=== PATIENT | female | born 1950 | race Caucasian/White ===

== ENCOUNTER 2022-06-24 03:52 | Inpatient (IN) ==
[2022-06-24] MEDS ORDERED: Piperacillin/Tazobactam 3.375 GM in 0.9 % Sodium Chloride Mini Bag 100 ML IVPB ONE (11:08)
[2022-06-24] MEDS ORDERED: *HR* Dextrose 50 % in Water (Syg) 50 ML SYRINGE IVP PRN (12:05)
[2022-06-24] MEDS ORDERED: Naloxone 0.4 MG/ML INJ IVP PRN (12:05)
[2022-06-24] MEDS ORDERED: Ondansetron 4 MG/2 ML VIAL IVP PRN (12:05)
[2022-06-24] MEDS ORDERED: Dextrose Gel 15 GM/37.5 ML TUBE PO PRN ×2 (12:05)
[2022-06-24] MEDS ORDERED: D5% in Water 1,000 ML IVC PRN (12:05)
[2022-06-24] MEDS ORDERED: *HR* HYDROmorphone PF 0.5 MG/0.5 ML SYRINGE IVP PRN (13:23)
[2022-06-24] MEDS ORDERED: *HR* FentaNYL (PF) 100 MCG/2 ML VIAL IVP PRN (13:23)
[2022-06-24] MEDS ORDERED: Lidocaine -MPF 2% 5 ML VIAL ONE (13:37)
[2022-06-24] MEDS ORDERED: *HR* Etomidate 40 MG/20 ML VIAL IVP ONE (13:37)
[2022-06-24] MEDS ORDERED: Ondansetron 4 MG/2 ML VIAL ONE (13:37)
[2022-06-24] MEDS ORDERED: *HR* FentaNYL (PF) 100 MCG/2 ML VIAL ONE (13:37)
[2022-06-24] MEDS ORDERED: *HR* Rocuronium Bromide 50 MG/5 ML VIAL ONE (13:37)
[2022-06-24] MEDS ORDERED: Lidocaine HCL 4 ML Topical Solution (Laryng-O-Jet Kit Sterile Pak) TP ONE (13:37)
[2022-06-24] MEDS ORDERED: Heparin 1,000 UNITS/500 mL 500 ML ONE (13:39)
[2022-06-24] MEDS ORDERED: Albumin Human 5% 12.5 GM/250 ML IV.SOLN ONE (13:51)
[2022-06-24] MEDS ORDERED: *HR* Vasopressin 20 UNIT/ML VIAL ONE (13:52)
[2022-06-24] MEDS ORDERED: Sugammadex Sodium 200 MG/2 ML VIAL IV ONE (15:06)
[2022-06-24] MEDS: Insulin LISPRO 300 UNITS/3 ML VIAL SUBQ SCH ×2 (17:35→23:59)
[2022-06-24] MEDS: Ringers Solution, Lactated 1,000 ML IVC SCH ×2 (18:49→20:00)
[2022-06-24 20:02] LABS: Estimated Average Glucose 169 mg/dl; Hemoglobin A1C 7.5 %
[2022-06-25] MEDS ORDERED: *HR* Dextrose 50 % in Water (Syg) 50 ML SYRINGE IVP PRN (03:41)
[2022-06-25] MEDS ORDERED: Ringers Solution, Lactated 1,000 ML IVC SCH (03:41)
[2022-06-25] MEDS ORDERED: Dextrose Gel 15 GM/37.5 ML TUBE PO PRN ×2 (03:41)
[2022-06-25] MEDS ORDERED: D5% in Water 1,000 ML IVC PRN (03:41)
[2022-06-25] MEDS ORDERED: *HR* HYDROmorphone PF 0.5 MG/0.5 ML SYRINGE IVP PRN (03:41)
[2022-06-25] MEDS ORDERED: Naloxone 0.4 MG/ML INJ IVP PRN (03:41)
[2022-06-25] MEDS ORDERED: *HR* FentaNYL (PF) 100 MCG/2 ML VIAL IVP PRN (03:41)
[2022-06-25] MEDS ORDERED: Ondansetron 4 MG/2 ML VIAL IVP PRN (03:41)
[2022-06-25 04:07] LABS: Basophils % 0.2 %; Hematocrit 32.1 % (35.3-44.9); Hemoglobin 9.9 g/dL (11.5-15.4); Immature Granulocytes % 0.5 % (0-4); Lymphocytes # 0.5 K/mcL (0.6-4.6); Lymphocytes % 2.9 %; Mean Corpuscular HGB Conc 30.8 g/dL (31.6-35.5); Mean Corpuscular Hemoglobin 30.4 pg (28.0-33.3); Mean Corpuscular Volume 98.5 fL (83.0-100.0); Mean Platelet Volume 11.2 fL (9.4-12.4); Monocytes # 0.7 K/mcL (0.0-1.3); Neutrophils # 16.1 K/mcL (1.6-8.9); Platelet Count 140 K/mcL (140-400); Red Blood Count 3.26 M/mcL (3.82-4.97); Segmented Neutrophils % 92.4 %; White Blood Count 17.4 K/mcL (4.3-11.1)
[2022-06-25 04:28] LABS: Albumin 3.9 g/dL (3.5-5.7); Albumin/Globulin Ratio 1.7 (1.1-2.2); Bilirubin,Total 0.3 mg/dL (0.3-1.0); Calcium 8.8 mg/dL (8.6-10.3); Globulin 2.3 g/dL (2.4-3.5); Magnesium 1.8 mg/dL (1.6-2.6); Phosphorous 4.4 mg/dL (2.7-4.5); Potassium 4.3 mEq/L (3.5-5.1); Total Protein 6.2 g/dL (6.4-8.9)
[2022-06-25] MEDS: Insulin LISPRO 300 UNITS/3 ML VIAL SUBQ SCH ×4 (05:36→23:52)
[2022-06-26 05:11] LABS: Basophils % 0.3 %; Eosinophils # 0.1 K/mcL (0.0-0.6); Eosinophils % 0.9 %; Hematocrit 31.3 % (35.3-44.9); Hemoglobin 9.5 g/dL (11.5-15.4); Immature Granulocytes % 0.5 % (0-4); Lymphocytes # 0.7 K/mcL (0.6-4.6); Lymphocytes % 5.8 %; Mean Corpuscular HGB Conc 30.4 g/dL (31.6-35.5); Mean Corpuscular Hemoglobin 30.3 pg (28.0-33.3); Mean Corpuscular Volume 99.7 fL (83.0-100.0); Mean Platelet Volume 11.4 fL (9.4-12.4); Monocytes # 0.8 K/mcL (0.0-1.3); Monocytes % 6.6 %; Neutrophils # 10.6 K/mcL (1.6-8.9); Platelet Count 129 K/mcL (140-400); Red Blood Count 3.14 M/mcL (3.82-4.97); Segmented Neutrophils % 85.9 %; White Blood Count 12.3 K/mcL (4.3-11.1)
[2022-06-26] MEDS: Insulin LISPRO 300 UNITS/3 ML VIAL SUBQ SCH ×4 (05:30→16:56)
[2022-06-26 05:31] LABS: Potassium 4.2 mEq/L (3.5-5.1)
[2022-06-26] MEDS ORDERED: *HR* LORazepam 2 MG/ML VIAL IVP ONE (16:51)
[2022-06-26] MEDS: cilostazoL 100 MG TABLET PO SCH (20:40)
[2022-06-26] MEDS: Ipratropium/Albuterol Neb 3 ML IH SCH (20:53)
[2022-06-27] MEDS: Insulin LISPRO 300 UNITS/3 ML VIAL SUBQ SCH ×4 (00:47→17:51)
[2022-06-27] MEDS: Ipratropium/Albuterol Neb 3 ML IH SCH ×4 (04:23→20:26)
[2022-06-27] MEDS ORDERED: Insulin DETEMIR 100 UNIT/ML X5UNITS SUBQ SCH (09:00)
[2022-06-27] MEDS ORDERED: Metoclopramide 10 MG/2 ML VIAL IVP ONE (10:08)
[2022-06-27] MEDS: Folic Acid 1 MG TABLET PO SCH (11:20)
[2022-06-27] MEDS: cilostazoL 100 MG TABLET PO SCH ×2 (11:20→20:03)
[2022-06-27] MEDS: Aspirin Enteric Coated 81 MG Tablet PO SCH (11:20)
[2022-06-27] MEDS: allopurinoL 100 MG TABLET PO SCH (11:21)
[2022-06-27] MEDS ORDERED: Furosemide 20 MG/2 ML VIAL IVP ONE (12:08)
[2022-06-27] MEDS: Insulin DETEMIR 100 UNIT/ML X5UNITS SUBQ SCH (12:31)
[2022-06-27 13:40] LABS: Mean Corpuscular HGB Conc 31.3 g/dL (31.6-35.5); Mean Corpuscular Hemoglobin 30.3 pg (28.0-33.3); Mean Platelet Volume 10.9 fL (9.4-12.4); Platelet Count 135 K/mcL (140-400); Red Cell Distribution Width 13.5 % (11.5-14.5); White Blood Count 11.9 K/mcL (4.3-11.1)
[2022-06-27 14:13] LABS: Calcium 9.1 mg/dL (8.6-10.3); Magnesium 1.8 mg/dL (1.6-2.6)
[2022-06-28 04:06] LABS: Hematocrit 31.4 % (35.3-44.9); Hemoglobin 9.6 g/dL (11.5-15.4); Mean Corpuscular HGB Conc 30.6 g/dL (31.6-35.5); Mean Corpuscular Volume 98.1 fL (83.0-100.0); Mean Platelet Volume 11.9 fL (9.4-12.4); Platelet Count 162 K/mcL (140-400); Red Cell Distribution Width 13.3 % (11.5-14.5)
[2022-06-28] MEDS: Ipratropium/Albuterol Neb 3 ML IH SCH ×4 (04:29→22:19)
[2022-06-28 05:23] LABS: Calcium 9.1 mg/dL (8.6-10.3)
[2022-06-28] MEDS: Insulin LISPRO 300 UNITS/3 ML VIAL SUBQ SCH ×5 (06:22→22:35)
[2022-06-28] MEDS: Folic Acid 1 MG TABLET PO SCH (07:48)
[2022-06-28] MEDS: Aspirin Enteric Coated 81 MG Tablet PO SCH (07:48)
[2022-06-28] MEDS: allopurinoL 100 MG TABLET PO SCH (07:49)
[2022-06-28] MEDS: cilostazoL 100 MG TABLET PO SCH ×2 (07:49→22:43)
[2022-06-28] MEDS: Insulin DETEMIR 100 UNIT/ML X5UNITS SUBQ SCH ×2 (07:49→07:56)
[2022-06-28] MEDS ORDERED: Furosemide 20 MG/2 ML VIAL IVP ONE (10:59)
[2022-06-29] MEDS: Ipratropium/Albuterol Neb 3 ML IH SCH ×4 (04:18→22:16)
[2022-06-29] MEDS: Insulin LISPRO 300 UNITS/3 ML VIAL SUBQ SCH ×4 (08:09→21:54)
[2022-06-29] MEDS: Aspirin Enteric Coated 81 MG Tablet PO SCH (08:09)
[2022-06-29] MEDS: Insulin DETEMIR 100 UNIT/ML X5UNITS SUBQ SCH (08:10)
[2022-06-29] MEDS: cilostazoL 100 MG TABLET PO SCH ×2 (08:10→21:29)
[2022-06-29] MEDS: Folic Acid 1 MG TABLET PO SCH (08:10)
[2022-06-29] MEDS: allopurinoL 100 MG TABLET PO SCH (08:10)
[2022-06-30] MEDS: Ipratropium/Albuterol Neb 3 ML IH SCH ×3 (04:03→15:03)
[2022-06-30 08:36] VITALS: BP 138/75; PULSE 121; TEMP 97.4
[2022-06-30] MEDS: Insulin LISPRO 300 UNITS/3 ML VIAL SUBQ SCH ×2 (08:48→12:32)
[2022-06-30] MEDS: allopurinoL 100 MG TABLET PO SCH (08:49)
[2022-06-30] MEDS: Aspirin Enteric Coated 81 MG Tablet PO SCH (08:50)
[2022-06-30] MEDS: Folic Acid 1 MG TABLET PO SCH (08:50)
[2022-06-30] MEDS: Insulin DETEMIR 100 UNIT/ML X5UNITS SUBQ SCH (08:50)
[2022-06-30] MEDS: cilostazoL 100 MG TABLET PO SCH (08:50)
[2022-06-30] MEDS ORDERED: Moderna Covid-19 Vaccine 100MCG/0.5mL IM ONE (12:27)
[2022-06-30 13:01] LABS: Influenza A PCR Negative (Negative); Influenza B PCR Negative (Negative); Resp. Syncytial Virus PCR Negative (Negative)
[2022-06-30 13:03] LABS: SARS-CoV-2 by PCR (In House) Negative (Negative)
[2022-06-30 15:41] VITALS: O2SAT 97
== END 2022-06-30 16:29 | DRG 228 ==
LOC: 3NENU → SUATTDRO 12:09
PROVIDERS: ADMIT Student in an Organized Health Care Education/Training Program; ATTEND Internal Medicine